=== PATIENT | male | born 1965 | race Caucasian/White ===

== ENCOUNTER 2019-03-11 17:28 | Emergency (ER) | payer OTHER ==
[2019-03-11] MEDS ORDERED: Dexamethasone 4 MG TAB ONE (18:08)
--- NOTE | 2019-03-11 18:44 | RAD ---
CHEST TWO VIEW 03/11/19 HISTORY: Cough. COMPARISON: None. FINDINGS: Lungs are mildly hyperinflated. No pneumothorax or effusion. There is some mild bibasilar atelectatic change worse in the left lower lobe. There is scarring throughout the lungs. The cardiac silhouette is unremarkable. Mild prominence of both pulmonary arteries. Moderate degenerative disease both acromioclavicular joints. Thoracic spine is unremarkable for acute abnormality. IMPRESSION: Left basilar opacity may reflect atelectasis or infection. Clinical correlation advised. POS: HOME
== END 2019-03-11 18:40 | disposition home or self-care (01) ==
LOC: SCSER 17:28
DX: J44.0 Chronic obstructive pulmonary disease with (acute) lower respiratory infection (principal); J20.9 Acute bronchitis, unspecified; J44.1 Chronic obstructive pulmonary disease with (acute) exacerbation; F17.210 Nicotine dependence, cigarettes, uncomplicated; Z71.6 Tobacco abuse counseling
CPT/HCPCS: 71046; 99407; J7620; J8540